=== PATIENT | female | born 1950 | race Hispanic/Latino ===

== ENCOUNTER 2018-06-04 08:38 | Outpatient (CLI) | payer MEDICARE, OTHER ==
--- NOTE | 2018-06-04 10:04 | BD ---
DEXA BONE DENSITY STUDY: History: 58-year-old post menopausal female for screening. Comparison: 03-12-09 Lumbar Spine: BMD (g/cm2) L1 0.836 T-Score: -1.4 L2 0.829 T-Score: -1.8 L3 0.890 T-Score: -1.8 L4 0.963 T-Score: -0.9 L1-L4 0.885 T-Score: -1.5 Femoral Neck: 0.604 T-Score: -2.2 Total Femur: 0.880 T-Score: -0.5 Impression: Osteopenia. This patient has a 10-year [facility] fracture risk of a osteoporotic fracture of 12% and hip fr acture of 2.1%. POS: LIANA
== END 2018-06-04 08:39 | disposition home or self-care (01) ==
LOC: BICMAMMO 08:38
PROVIDERS: ATTEND Family Medicine
DX: Z12.31 Encounter for screening mammogram for malignant neoplasm of breast (principal); Z13.820 Encounter for screening for osteoporosis; M85.89 Other specified disorders of bone density and structure, multiple sites; Z98.82 Breast implant status
CPT/HCPCS: 77063; 77067; 77080

== ENCOUNTER 2020-01-28 13:01 | Outpatient (CLI) | payer MEDICARE, OTHER ==
--- NOTE | 2020-01-28 14:13 | RAD ---
RIGHT HAND: 01/28/20 Three views. HISTORY: Hand pain. FINDINGS: mild narrowing of the radiocarpal joint. Slight deformity and hypertrophic change seen involving the distal scaphoid. This could represent old healed fracture. No acute fracture identified. Mild narrowi ng and degenerative changes at the scaphotrapezium and at the first carpometacarpal. Metacarpals and phalanges are intact. Mild degenerative changes at the IP joints. IMPRESSION: No evidence of acute fracture. Slight deformity and degenerative change involving the distal scaphoid at the scaphotrapezium. POS: AGW
--- NOTE | 2020-01-28 14:15 | RAD ---
RIGHT WRIST 3 VIEWS: HISTORY: Wrist pain. FINDINGS: Slight deformity and hypertrophic changes involving the distal scaphoid at the scaphotrapezium. Mild degenerative change at the 1st carpometacarpal. No acute fracture. Metacarpals appear intact. IMPRESSION: Deformity to the distal scaphoid with degenerative change. Old healed fracture at this site cannot b e excluded. No acute fracture identified. POS: AGW
== END 2020-01-28 13:02 | disposition home or self-care (01) ==
LOC: BICRAD 13:01
DX: M25.531 Pain in right wrist (principal); M19.031 Primary osteoarthritis, right wrist; M21.931 Unspecified acquired deformity of right forearm; M19.041 Primary osteoarthritis, right hand; M21.941 Unspecified acquired deformity of hand, right hand

== ENCOUNTER 2021-01-28 09:51 | Outpatient (CLI) | payer MEDICARE, OTHER | END 2021-01-28 09:52 | disposition home or self-care (01) | LOC: BICRAD 09:51 | PROVIDERS: ATTEND Nurse Practitioner Family | DX: M25.861 Other specified joint disorders, right knee (principal); M25.862 Other specified joint disorders, left knee; R22.43 Localized swelling, mass and lump, lower limb, bilateral ==

== ENCOUNTER 2021-02-10 08:40 | Outpatient (CLI) | payer MEDICARE, OTHER | END 2021-02-10 08:41 | disposition home or self-care (01) | LOC: BICMAMMO 08:40 | PROVIDERS: ATTEND Nurse Practitioner Family | DX: Z12.31 Encounter for screening mammogram for malignant neoplasm of breast (principal); N63.20 Unspecified lump in the left breast, unspecified quadrant; Z98.82 Breast implant status | CPT/HCPCS: 77063; 77067 ==

== ENCOUNTER 2022-09-25 10:56 | Outpatient (CLI) | payer MEDICARE | END 2022-09-25 10:57 | disposition home or self-care (01) | LOC: BICRAD 10:56 | PROVIDERS: ATTEND Nurse Practitioner Family | DX: M54.6 Pain in thoracic spine (principal); M54.50 Low back pain, unspecified; M62.830 Muscle spasm of back; M47.814 Spondylosis without myelopathy or radiculopathy, thoracic region; M47.816 Spondylosis without myelopathy or radiculopathy, lumbar region | CPT/HCPCS: 72070; 72100 ==

== ENCOUNTER 2023-02-13 16:13 | Outpatient (CLI) | payer MEDICARE | END 2023-02-13 16:14 | disposition home or self-care (01) | LOC: RAD 16:13 | PROVIDERS: ATTEND Nurse Practitioner Family | DX: R05.9 Cough, unspecified (principal); R49.9 Unspecified voice and resonance disorder; K21.9 Gastro-esophageal reflux disease without esophagitis | CPT/HCPCS: 71046 ==

== ENCOUNTER 2023-04-19 09:56 | Outpatient (CLI) | payer MEDICARE | END 2023-04-19 09:57 | disposition home or self-care (01) | LOC: BICRAD 09:56 | PROVIDERS: ATTEND Nurse Practitioner Family | DX: M54.50 Low back pain, unspecified (principal); M25.551 Pain in right hip; M25.552 Pain in left hip; G89.29 Other chronic pain; M47.816 Spondylosis without myelopathy or radiculopathy, lumbar region | CPT/HCPCS: 72100 ==

== ENCOUNTER 2023-07-25 09:12 | Outpatient (CLI) | payer MEDICARE | END 2023-07-25 09:13 | disposition home or self-care (01) | LOC: BICMAMMO 09:12 | PROVIDERS: ATTEND Nurse Practitioner Family | DX: Z13.820 Encounter for screening for osteoporosis (principal); M25.551 Pain in right hip; M25.552 Pain in left hip; Z78.0 Asymptomatic menopausal state; M81.0 Age-related osteoporosis without current pathological fracture; M85.89 Other specified disorders of bone density and structure, multiple sites | CPT/HCPCS: 77080 ==